=== PATIENT | female | born 1995 | race Two or more races ===

== ENCOUNTER 2022-02-05 21:01 | Outpatient (CLI) | payer OTHER ==
[2022-02-05] MEDS ORDERED: PRENATAL + DHA1 EAC1 PO (22:54)
== END 2022-02-06 14:22 | disposition home or self-care (01) ==
LOC: OBS/DEL 21:01
PROVIDERS: ATTEND Obstetrics & Gynecology Obstetrics
DX: O26.893 Other specified pregnancy related conditions, third trimester (principal); Z3A.37 37 weeks gestation of pregnancy; I10 Essential (primary) hypertension

== ENCOUNTER → 2023-12-24 07:10 | Outpatient (CLI) | payer OTHER ==
[~2023-12-24 07:10] MED LIST: PRENATAL + DHA1 EAC1 PO
== END | disposition home or self-care (01) ==
LOC: NUCLEAR 07:00
DX: E05.80 Other thyrotoxicosis without thyrotoxic crisis or storm (principal)

== ENCOUNTER 2023-12-25 07:06 | Outpatient (CLI) | payer OTHER | END 2023-12-25 07:07 | disposition home or self-care (01) | LOC: NUCLEAR 07:06 | DX: E05.80 Other thyrotoxicosis without thyrotoxic crisis or storm (principal) ==